=== PATIENT | female | born 1960 | race Asian ===

== ENCOUNTER 2024-03-06 10:29 | Observation (INO) | payer BC ==
[2024-03-05 12:36] VITALS: BMI 25.4
[2024-03-06] MEDS ORDERED: Bupivacaine PF 0.5% 30 ML VIAL ONE (13:14)
[2024-03-06] MEDS ORDERED: fentaNYL 50 mcg/mL 1 mL Vial ONE ×7 (13:14→17:13)
[2024-03-06] MEDS ORDERED: Midazolam HCl 2 mg/2 ml Vial ONE (13:14)
[2024-03-06] MEDS ORDERED: PROPOFOL 20 ML ONE (13:42)
[2024-03-06] MEDS ORDERED: Lidocaine 1% PF 5 ML VIAL ONE (13:42)
[2024-03-06] MEDS ORDERED: Sodium Chloride 0.9% 100 ML ONE (13:57)
[2024-03-06] MEDS ORDERED: CEFAZOLIN 2 GM VIAL ONE (13:57)
[2024-03-06] MEDS ORDERED: Labetalol HCl 100 MG/20 ML VIAL ONE (14:28)
[2024-03-06] MEDS ORDERED: Bupivacaine HCl 0.5%/Epinephrine 1:200,000/PF 30 ml Vial ONE (14:28)
[2024-03-06] MEDS ORDERED: Ondansetron PF 4 MG/2 ML Vial ONE (14:45)
[2024-03-06] MEDS ORDERED: Dexamethasone 20 MG/5 ML VIAL ONE (14:45)
[2024-03-06] MEDS ORDERED: ePHEDrine Sulfate 50 MG/10 ML VIAL ONE (14:52)
[2024-03-06] MEDS ORDERED: Promethazine HCl 25 MG/ML VIAL IM PRN (15:43)
[2024-03-06] MEDS ORDERED: Ondansetron HCl/PF 4 MG/2 ML Vial IVP PRN (15:43)
[2024-03-06] MEDS ORDERED: Communication Order-Pharmacy FS PRN (16:13)
[2024-03-06] MEDS ORDERED: hydrALAZINE 20 MG/ML VIAL ONE (17:23)
[2024-03-06] MEDS: HYDROcodone/Acetaminophen 5/325 mg Tablet PO PRN (20:59)
[2024-03-06] MEDS: CEFAZOLIN 2 GM in Sodium Chloride 0.9% 100 ML IVPB SCH (20:59)
[2024-03-07] MEDS: HYDROcodone/Acetaminophen 5/325 mg Tablet PO PRN (04:05)
[2024-03-07] MEDS: Losartan 25 MG TAB PO SCH (09:26)
[2024-03-08 13:30] VITALS: BP 178/90; TEMP 98.3
== END 2024-03-08 12:09 | disposition home or self-care (01) ==
LOC: SDC 10:29 → SURG A 18:05
PROVIDERS: ADMIT Orthopaedic Surgery; ATTEND Orthopaedic Surgery
PROC: 0PSJ04Z Reposition Left Radius with Internal Fixation Device, Open Approach (ICD-10-PCS; principal; 2024-03-06)
PROC: 0PS904Z Reposition Right Clavicle with Internal Fixation Device, Open Approach (ICD-10-PCS; 2024-03-06)
DX: S52.502A Unspecified fracture of the lower end of left radius, initial encounter for closed fracture (principal); S42.021A Displaced fracture of shaft of right clavicle, initial encounter for closed fracture; I10 Essential (primary) hypertension; R51.9 Headache, unspecified; Z87.891 Personal history of nicotine dependence; G47.00 Insomnia, unspecified; Z87.59 Personal history of other complications of pregnancy, childbirth and the puerperium; Z79.899 Other long term (current) drug therapy
CPT/HCPCS: 93005; 93010; C1713; J0360; J0665; J1100; J2250; J2405; J2704; J3010; J3490

== ENCOUNTER 2024-09-11 09:47 | Outpatient (CLI) | payer BC | END 2024-09-11 09:48 | disposition home or self-care (01) | LOC: BICRAD 09:47 | PROVIDERS: ATTEND Family Medicine | DX: M25.562 Pain in left knee (principal) ==